=== PATIENT | female | born 1995 | race African-American/Black ===

== ENCOUNTER 2019-06-07 09:06 | Emergency (ER) | payer OTHER ==
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
[2019-06-07 11:37] VITALS: BP 101/60
== END 2019-06-07 11:37 | disposition home or self-care (01) ==
LOC: ER 09:06
DX: S06.9X9A Unspecified intracranial injury with loss of consciousness of unspecified duration, initial encounter (principal); S00.83XA Contusion of other part of head, initial encounter; V49.40XA Driver injured in collision with unspecified motor vehicles in traffic accident, initial encounter; G43.909 Migraine, unspecified, not intractable, without status migrainosus; Z79.1 Long term (current) use of non-steroidal anti-inflammatories (NSAID)
CPT/HCPCS: 70450